=== PATIENT | male | born 1990 | race African-American/Black ===

== ENCOUNTER 2025-01-07 19:28 | Emergency (ER) | payer OTHER ==
[~2025-01-07] VITALS: Ht 180.3 cm; Wt 87.0 kg
[2025-01-07 20:11] VITALS: O2SAT 99
[2025-01-07] MEDS: KETOROLAC 30MG/ML VIAL IM ONE (23:05)
[2025-01-07] MEDS: METHOCARBAMOL 500MG TABLET PO ONE (23:05)
[2025-01-07] MEDS: LIDOCAINE 5% PATCH TOP STA (23:05)
[2025-01-07] MEDS ORDERED: LIDO700A30 TP (23:58)
[2025-01-07] MEDS ORDERED: KETO10TA2 MT (23:58)
[2025-01-07] MEDS ORDERED: METH-774 MT (23:58)
[2025-01-08 00:10] VITALS: BP 142/92; PULSE 65; RESP 18; TEMP 36.9; O2SAT 99
== END 2025-01-08 00:11 | disposition home or self-care (01) ==
LOC: ER 19:28
DX: M47.812 Spondylosis without myelopathy or radiculopathy, cervical region (principal); M54.2 Cervicalgia; Z79.899 Other long term (current) drug therapy
CPT/HCPCS: 99283; 72040; 96372; J1885